=== PATIENT | male | born 1950 | race Two or more races ===

== ENCOUNTER 2023-03-22 11:08 | Inpatient (IN) | payer MEDICARE, OTHER ==
[~2023-03-22] VITALS: Ht 167.6 cm; Wt 63.5 kg
--- NOTE | 2023-03-22 11:19 | NUR ---
BIB , SENT BY HER PMD, C/O WEAKNESS AND HAD A SYNCOPAL EPISODE DENIES ANY HEAD TRAUMA. PT HAS ACCESS FOR DIALYSIS ON HIS R UPPER ARM, LAST DIALYSIS WAS YESTERDAY. ATTACHED TO MONITOR, VITALS ARE WITHIN NORMAL LIMITS. WARM BLANKET PROVIDED FOR COMFORT. AWAITING MD RICHARDSON.
--- NOTE | 2023-03-22 11:31 | NUR ---
IV ESTABLISHED L FA 20G. LABS AND BLOOD CULTURES DRAWN AND OCLLETCED AT BEDSIDE.
--- NOTE | 2023-03-22 11:41 | NUR ---
COVID TEST COLLECTED AND SENT
--- NOTE | 2023-03-22 11:42 | NUR ---
PT IS UNABLE TO PROVIDE URINE, HE IS ANURIC. AWARE.
[2023-03-22] MEDS ORDERED: LEVO50TA8 PO (11:54)
[2023-03-22] MEDS ORDERED: ATOR40TA PO (11:54)
[2023-03-22] MEDS ORDERED: PANT20TA17 PO (11:54)
[2023-03-22] MEDS ORDERED: PRAM0.129 PO (11:54)
[2023-03-22] MEDS ORDERED: ASPI-1420 PO (11:54)
[2023-03-22] MEDS ORDERED: CARV6.252 PO (11:54)
[2023-03-22 12:05] LABS: BASOPHILS # (AUTO) 0.1 K/uL (0.0-0.2); BASOPHILS % (AUTO) 1.6 % (0.0-2.0); EOSINOPHILS % (AUTO) 4.5 % (0.0-6.0); HEMATOCRIT 29 % (39-51); HEMOGLOBIN 9.5 g/dL (13.5-17.5); LYMPHOCYTES # (AUTO) 0.4 K/uL (0.8-4.8); LYMPHOCYTES % (AUTO) 10.1 % (20.0-44.0); MEAN CORPUSCULAR HGB CONC 33 g/dl (31.0-36.0); MEAN CORPUSCULAR VOLUME 93 fL (80-96); MONOCYTES # (AUTO) 0.4 K/uL (0.1-1.30); MONOCYTES % (AUTO) 9.8 % (2.0-12.0); NEUTROPHILS # (AUTO) 3.3 K/uL (1.8-8.9); PLATELET COUNT (AUTO) 233 K/uL (150-450); RED BLOOD CELL COUNT(AUTO) 3.13 MIL/uL (4.5-6.0); WHITE BLOOD COUNT (AUTO) 4.4 K/uL (4.3-11.0)
[2023-03-22 12:21] LABS: CALCIUM, SERUM 9.7 mg/dL (8.5-10.1); CARBON DIOXIDE 30 mmol/L (21-32); CHLORIDE 97 mmol/L (98-107); CREATININE 5.1 mg/dL (0.6-1.3); GLUCOSE 128 mg/dL (74-106); POTASSIUM 4.1 mmol/L (3.5-5.1); SODIUM SERUM 135 mmol/L (136-145); UREA NITROGEN, BLOOD 49 mg/dL (7-18)
[2023-03-22 12:32] LABS: ALANINE AMINOTRANSFERASE 24 U/L (12-78); ALBUMIN 2.1 g/dL (3.4-5.0); ALKALINE PHOSPHATASE 350 U/L (46-116); ASPARTATE AMINOTRANSFERASE 37 U/L (15-37); BILIRUBIN,DIRECT 0.3 mg/dL (0.0-0.2); BILIRUBIN,TOTAL 0.7 mg/dL (0.2-1.0); TOTAL PROTEIN, SERUM 6.6 g/dL (6.4-8.2)
--- NOTE | 2023-03-22 12:35 | NUR ---
BED 113-1
--- NOTE | 2023-03-22 14:08 | NUR ---
REPORT GIVEN TO TIGRE FOR PRIYA
--- NOTE | 2023-03-22 14:09 | NUR ---
RN NOTE RECEIVED REPORT FROM [facility], PATIENT WILL BE ADMITTED TO TELE ROOM 113 BED 1.
--- NOTE | 2023-03-22 14:52 | NUR ---
TRANSPORTED TO FLOOR IN STABLE CONDITION.
[2023-03-22] MEDS ORDERED: ACETAMINOPHEN 325 MG TABLET PO PRN (15:30)
[2023-03-22] MEDS ORDERED: MAG HYDROX/AL HYDROX/SIMETH 30 ML UDC PO PRN (15:30)
[2023-03-22] MEDS ORDERED: ONDANSETRON HCL/PF 4 MG/2 ML VIAL IVP PRN (15:30)
[2023-03-22] MEDS ORDERED: ZOLPIDEM TARTRATE 5 MG TABLET PO PRN (15:30)
[2023-03-22] MEDS ORDERED: MAGNESIUM HYDROXIDE 30 ML UDC PO PRN (15:30)
[2023-03-22] MEDS ORDERED: Z GUARD REMEDY 4 OZ OINT TP PRN (15:30)
[2023-03-22] MEDS: ASPIRIN EC 81 MG TABLET.DR PO SCH (15:55)
--- NOTE | 2023-03-22 18:46 | NUR ---
RN NOTE PATIENT STARTED DIAYLSIS AT THIS TIME.
--- NOTE | 2023-03-22 20:11 | NUR ---
ADMISSION RN NOTE RECEIVED PATIENT ALREADY IN ROOM. TRANSFERRED IN UNIT AT AROUND 1405 ACCORDING TO REPORT. 3 FAMILY MEMBERS AT BEDSIDE. PATIENT IS CURRENTLY GETTING DIALYSIS. ACCESS ON R. FISTULA. NO BP SIGN ON L. ARM IN PLACE. PATIENT IS A/OX4. NO S/S OF APPARENT DISTRESS IN ROOM AIR. DENIES ANY PAIN NOR DISCOMFORT. PATIENT WISHES TO BE FULL CODE. NEW ID BAND ON PATIENT. BELONGINGS CHECKED AND SIGNED FOR. PATIENT WITH FAMILY MEMBERS ORIENTED IN THE UNIT AND THE USE OF CALL LIGHT. SAFETY IN PLACE-- BED IN LOWEST, LOCKED POSITION, CALL LIGHT WITHIN REACH, SIDE RAILS UP X2. JAR, HD RN IN ROOM. WILL CONTINUE WITH PATIENT'S PLAN OF CARE AND FOLLOW THROUGH DOCTOR'S ORDERS.
--- NOTE | 2023-03-23 07:00 | NUR ---
RN OPENING NOTE RECEIVED PATIENT IN BED, AWAKE, A/O X 4. PATIENT ON ROOM AIR WITH NO S/SX OF ACUTE RESPI DISTRESS, PAIN, DISCOMFORT OR DISTRESS NOTED AT THIS TIME. BREATHING IS EVEN AND UNLABORED. IV ACCESS ON LEFT FA #20g, INTACT, PATENT, AND FLUSHING WELL. R AV FISTULA. ALL SAFETY MEASURES IN PLACE, BED ELEVATED, IN LOWEST AND LOCKED POSITION. SIDE RAILS UP X3, CALL LIGHT AND TABLE WITHIN REACH. WILL CONTINUE TO MONITOR.
[2023-03-23 07:27] LABS: BASOPHILS # (AUTO) 0.1 K/uL (0.0-0.2); BASOPHILS % (AUTO) 1.2 % (0.0-2.0); EOSINOPHILS % (AUTO) 4.6 % (0.0-6.0); HEMATOCRIT 29 % (39-51); HEMOGLOBIN 9.6 g/dL (13.5-17.5); LYMPHOCYTES # (AUTO) 0.5 K/uL (0.8-4.8); LYMPHOCYTES % (AUTO) 10.7 % (20.0-44.0); MEAN CORPUSCULAR HGB CONC 33 g/dl (31.0-36.0); MEAN CORPUSCULAR VOLUME 90 fL (80-96); MONOCYTES # (AUTO) 0.6 K/uL (0.1-1.30); MONOCYTES % (AUTO) 12.9 % (2.0-12.0); NEUTROPHILS # (AUTO) 3.3 K/uL (1.8-8.9); NEUTROPHILS % (AUTO) 70.6 % (43.0-81.0); PLATELET COUNT (AUTO) 228 K/uL (150-450); RED BLOOD CELL COUNT(AUTO) 3.24 MIL/uL (4.5-6.0); WHITE BLOOD COUNT (AUTO) 4.7 K/uL (4.3-11.0)
[2023-03-23 07:51] LABS: CALCIUM, SERUM 9.8 mg/dL (8.5-10.1); CARBON DIOXIDE 29 mmol/L (21-32); CHLORIDE 99 mmol/L (98-107); CREATININE 4.2 mg/dL (0.6-1.3); GLUCOSE 102 mg/dL (74-106); MAGNESIUM 2.1 mg/dL (1.8-2.4); PHOSPHORUS 4.8 mg/dL (2.5-4.9); SODIUM SERUM 135 mmol/L (136-145); UREA NITROGEN, BLOOD 35 mg/dL (7-18)
[2023-03-23] MEDS: LEVOTHYROXINE SODIUM 50 MCG TABLET PO SCH (08:13)
[2023-03-23] MEDS: PANTOPRAZOLE 40 MG TABLET.DR PO SCH (08:13)
[2023-03-23] MEDS: ASPIRIN EC 81 MG TABLET.DR PO SCH (08:13)
[2023-03-23] MEDS: ATORVASTATIN 40 MG TABLET PO SCH (08:13)
[2023-03-23] MEDS: ALBUMIN 25% 25 GM in PREMIX 1 EA IV PRN (09:34)
--- NOTE | 2023-03-23 10:28 | NUR ---
RN NOTE DOCTOR SANDIP NOTIFIED ABOUT BNP [id number] OF LAST NIGHT. NO NEW ORDERS RECEIVED.
[2023-03-23 10:59] LABS: CHOLESTEROL 86 mg/dL (<200); HDL CHOLESTEROL 54 mg/dL (40-60); LDL 34 mg/dL (0-99); TRIGLYCERIDES 37 mg/dL (30-150)
[2023-03-23 12:21] VITALS: BP 123/59
[2023-03-23] MEDS ORDERED: HEPARIN SODIUM, PORCINE 5000 UNITS/1 ML VIAL IV ONE (13:00)
[2023-03-23] MEDS: HEPARIN INFUSION/D5W 500 ML IV PRN (14:55)
[2023-03-23 16:00] VITALS: BP 117/59
--- NOTE | 2023-03-23 19:16 | NUR ---
RN CLOSING NOTE RECEIVED PATIENT IN BED, AWAKE, A/O X 4. PATIENT ON ROOM AIR WITH NO S/SX OF ACUTE RESPI DISTRESS, PAIN, DISCOMFORT OR DISTRESS NOTED AT THIS TIME. BREATHING IS EVEN AND UNLABORED. IV ACCESS ON LEFT FA #20g, INTACT, PATENT, AND FLUSHING WELL. PATIENT ON HEPARIN DRIP. APPT TO BE RETAKEN AT 2100 AND TITRATE PER HOSPITAL PROTOCOL. PATIENT R AV FISTULA, HAD HEMODIALYSIS TODAY AND 2,000 ML OF FLUID WAS REMOVED. ALL SAFETY MEASURES IN PLACE, BED ELEVATED, IN LOWEST AND LOCKED POSITION. SIDE RAILS UP X3, CALL LIGHT AND TABLE WITHIN REACH. REPORT GIVEN TO FLEET SERVICE MANAGER FOR CONTINUING OF CARE.
--- NOTE | 2023-03-23 19:20 | NUR ---
RN NOTE RECEIVED PT FOR CONTINUITY OF CARE. PATIENT A/OX4 IN NO S/SX OF ACUTE DISTRESS AT THIS TIME; CURRENTLY ON ROOM AIR; WITH 02 SAT >95% AT THIS TIME.FAMILY AT BEDSIDE. WITH IV ACCESS PATENT, INTACT AND FLUSHING WELL. WITH RUNNING HEPARIN RECEIVED @ DOSE RATE OF 900U/HR. ENSURE SAFETY MEASURES WITHIN THE SHIFT. PATIENT BED ALARM IS ON. HEAD OF BED ELEVATED. BED IS LOCKED, IN LOWEST POSITION AND SIDE RAILS UP. CALL LIGHT WITHIN REACH OF THE PATIENT. WILL CONTINUE TO MONITOR AND REASSESS FOR ANY CHANGES AND WILL CARRY OUT ANY ONGOING AND ACTIVE MD ORDER.
[2023-03-23 20:00] VITALS: BP 102/58
--- NOTE | 2023-03-23 22:34 | NUR ---
RN NOTE CRITICAL LAB RECEIVED FROM LAB; S/W RADHA PTT : 152.9. WILL ADJUST PER HEPARIN PROTOCOL AND NOTIFY
--- NOTE | 2023-03-23 22:35 | NUR ---
RN NOTE PTT : 152.9 PER HEPARIN PROTOCOL >90. HOLD INFUSION FOR 1 HR AND THEN DECREASE RATE BY 200U/HR. CURRENT INFUSION AT 900U/HR. STO BY 2235 RESUME AT 2335 WITH NEW DOSE RATE OF 700U/HR. THEN REPEAT PTT IN 6HOURS. NOTIFIED (JULIOCESAR WALLS). WATER RESOURCES TECHNICAL OFFICER WELL AWARE.
--- NOTE | 2023-03-23 23:35 | NUR ---
RN NOTE RESTARTED HEPARIN DRIP @700U/HR; REPEAT PTT IN 6HOURS. WATER OPERATOR MADE AWARE.
[2023-03-24] VITALS: BP 115/61
[2023-03-24 04:00] VITALS: BP 113/65
--- NOTE | 2023-03-24 04:00 | NUR ---
RN NOTE PATIENT REMAINED TO BE IN NO SIGNS OF ACUTE RESPIRATORY DISTRESS , SAFE ENVIRONMENT MAINTAINED FOR PT. AM PATIENT CARE ASSISTANCE RENDERED. WILL CONTINUE TO MONITOR AND REASSESS FOR ANY CHANGES THROUGHOUT THE SHIFT.
--- NOTE | 2023-03-24 05:40 | NUR ---
RN NOTE AM EKG DONE; AFIB , NOTIFIED STACY OJEDA (TITI,BASTING MACHINE OPERATOR)
--- NOTE | 2023-03-24 06:36 | NUR ---
RN NOTE PATIENT REMAINS IN ROOM IN NO SIGNS OF RESPIRATORY DISTRESS, PATIENT STILL ON ROOM AIR ;TOLERATING WELL SATURATING @ >95% SP02. HAD EPISODE OF CONFUSION DURING THE SHIFT, MD AWARE (TITITRAVERSE ROD ASSEMBLER) SAFETY MEASURES IMPLEMENTED, BED IN LOWEST POSITION, LOCKED, SIDE RAILS UP, CALL LIGHT WITHIN REACH. ALL NEEDS AND ORDERS ADDRESSED DURING THE SHIFT. IV ACCESS MAINTAINED INTACT, SECURED AND FLUSHING WELL. ALL DUE MEDS GIVEN ORDERED & SCHEDULED ; PATIENT TOLERATED WELL. STILL WITH ONGOING HEPARIN DRIP PER PROTOCOL WITH CURRENT DOSE RATE OF 700U/HR. WAITING FOR NEW PTT RESULT; ONCE OUT WILL ADJUST PER PROTOCOL. PATIENT KEPT CLEAN AND COMFORTABLE WITHIN THE SHIFT. PATIENT ENDORSED TO INCOMING SHIFT RN WITH STABLE VITAL SIGN AND FOR CONTINUITY OF CARE.
[2023-03-24 07:27] LABS: BASOPHILS # (AUTO) 0.1 K/uL (0.0-0.2); BASOPHILS % (AUTO) 1.9 % (0.0-2.0); HEMATOCRIT 30 % (39-51); HEMOGLOBIN 9.4 g/dL (13.5-17.5); LYMPHOCYTES # (AUTO) 0.6 K/uL (0.8-4.8); LYMPHOCYTES % (AUTO) 12.3 % (20.0-44.0); MEAN CORPUSCULAR HGB CONC 32 g/dl (31.0-36.0); MEAN CORPUSCULAR VOLUME 94 fL (80-96); MONOCYTES # (AUTO) 0.6 K/uL (0.1-1.30); MONOCYTES % (AUTO) 12.8 % (2.0-12.0); NEUTROPHILS # (AUTO) 3.1 K/uL (1.8-8.9); PLATELET COUNT (AUTO) 243 K/uL (150-450); RED BLOOD CELL COUNT(AUTO) 3.17 MIL/uL (4.5-6.0); WHITE BLOOD COUNT (AUTO) 4.5 K/uL (4.3-11.0)
[2023-03-24 07:37] LABS: ALANINE AMINOTRANSFERASE 21 U/L (12-78); ALBUMIN 2.3 g/dL (3.4-5.0); ALKALINE PHOSPHATASE 316 U/L (46-116); ASPARTATE AMINOTRANSFERASE 30 U/L (15-37); BILIRUBIN,TOTAL 0.6 mg/dL (0.2-1.0); CALCIUM, SERUM 9.8 mg/dL (8.5-10.1); CARBON DIOXIDE 27 mmol/L (21-32); CHLORIDE 102 mmol/L (98-107); GLUCOSE 81 mg/dL (74-106); MAGNESIUM 2.3 mg/dL (1.8-2.4); PHOSPHORUS 5.4 mg/dL (2.5-4.9); POTASSIUM 4.3 mmol/L (3.5-5.1); SODIUM SERUM 137 mmol/L (136-145); TOTAL PROTEIN, SERUM 6.4 g/dL (6.4-8.2); UREA NITROGEN, BLOOD 30 mg/dL (7-18)
[2023-03-24 08:00] VITALS: BP 121/69
[2023-03-24] MEDS: LEVOTHYROXINE SODIUM 50 MCG TABLET PO SCH (08:14)
[2023-03-24] MEDS: ASPIRIN EC 81 MG TABLET.DR PO SCH (08:14)
[2023-03-24] MEDS: PANTOPRAZOLE 40 MG TABLET.DR PO SCH (08:14)
[2023-03-24] MEDS: ATORVASTATIN 40 MG TABLET PO SCH (08:14)
--- NOTE | 2023-03-24 09:45 | NUR ---
I HOLD THE HEPARIN DRIP FOR ONE HOUR AT 0945 AND AT 1045 AND DECREASE THE RATE 200, SO NOW IS 700 WHICH I HOLD IT. WHEN I RESUME AT 1045 THE RATE WILL BE 500
--- NOTE | 2023-03-24 10:45 | NUR ---
I RESUMED THE HEPARIN DRIP AT 1045 PER PROTOCOL I DECREASED THE RATE FROM 700 TO 500 (10ML/HR). PHARMACY ALREADY NOTIFIED BY PHONE
[2023-03-24 12:00] VITALS: BP 117/69
[2023-03-24] MEDS: LEVOFLOXACIN 500 MG /D5W 100ML 100 ML IV SCH (14:52)
--- NOTE | 2023-03-24 15:00 | NUR ---
NEW IV SITE INITIATED ON PATIENT'S LEFT UPPER ARM G 20 FOR LEVOFLOXACIN. PATIENT IS ON HEPARIN DRIM AND HAD ONLY ONE IV ACCESS, SINCE HEPARIN AND LEVOFLOXACIN ARE NOT COMPATIBLE I HAD TO HAVE A NEW IV SITE.
[2023-03-24 16:00] VITALS: BP 94/41
--- NOTE | 2023-03-24 18:55 | NUR ---
PTT RESULT CAME IN 63.7 PER PROTOCOL NO CHANGES IN HEPARIN DRIP RATE.
--- NOTE | 2023-03-24 19:40 | NUR ---
ADMINISTRATIVE SUPERVISOR OPENING NOTE RECEIVED PATIENT IN BED; AWAKE, ALERT AND ORIENTED X 4. HUNGARIAN SPEAKER. ON O2 INHALATION @ 2 LPM VIA NASAL CANNULA; TOLERATING WELL. NOT IN ANY FORM OF RESPIRATORY OR CARDIAC DISTRESS NOTED AT THIS TIME. ON TELEMETRY MONITORING WHICH READS CONTROLLED A FIB HR-74 BPM. WITH IV ACCESS ON LEFT FOREARM 20g; PATENT AND INTACT WITH ONGOING HEPARIN DRIP RUNNING @ 500 UNITS/HR OR 10 ML/HR ORDERED PER HEPARIN DRIP PROTOCOL. WITH ANOTHER IV LINE ON LEFT UPPER ARM 20g; PATENT, INTACT AND SALINE LOCKED. WITH RIGHT AV FISTULA. ABLE TO MAKE NEEDS KNOWN. SAFETY PRECAUTIONS IMPLEMENTED: CALL LIGHT AND TABLE WITHIN REACH, SIDE RAILS UP X 3, BED IN LOWEST LOCKED POSITION. WILL CONTINUE TO MONITOR PATIENT ACCORDINGLY.
[2023-03-24 20:00] VITALS: BP 107/65
[2023-03-24] MEDS: HEPARIN INFUSION/D5W 500 ML IV PRN (23:25)
[2023-03-25] VITALS: BP 114/52
[2023-03-25 04:00] VITALS: BP 110/60
[2023-03-25 06:52] LABS: BASOPHILS # (AUTO) 0.2 K/uL (0.0-0.2); BASOPHILS % (AUTO) 2.9 % (0.0-2.0); EOSINOPHILS % (AUTO) 5.2 % (0.0-6.0); HEMATOCRIT 30 % (39-51); HEMOGLOBIN 9.3 g/dL (13.5-17.5); LYMPHOCYTES # (AUTO) 0.5 K/uL (0.8-4.8); LYMPHOCYTES % (AUTO) 10.2 % (20.0-44.0); MEAN CORPUSCULAR HGB CONC 31 g/dl (31.0-36.0); MEAN CORPUSCULAR VOLUME 94 fL (80-96); MONOCYTES # (AUTO) 0.6 K/uL (0.1-1.30); NEUTROPHILS # (AUTO) 3.8 K/uL (1.8-8.9); NEUTROPHILS % (AUTO) 69.7 % (43.0-81.0); PLATELET COUNT (AUTO) 248 K/uL (150-450); RED BLOOD CELL COUNT(AUTO) 3.18 MIL/uL (4.5-6.0); WHITE BLOOD COUNT (AUTO) 5.4 K/uL (4.3-11.0)
[2023-03-25 07:04] LABS: CARBON DIOXIDE 25 mmol/L (21-32); CHLORIDE 100 mmol/L (98-107); CREATININE 5.1 mg/dL (0.6-1.3); GLUCOSE 85 mg/dL (74-106); POTASSIUM 4.7 mmol/L (3.5-5.1); SODIUM SERUM 136 mmol/L (136-145); UREA NITROGEN, BLOOD 42 mg/dL (7-18)
--- NOTE | 2023-03-25 07:05 | NUR ---
RN NOTE PTT RESULT CAME IN: 54.2. PER HEPARIN DRIP PROTOCOL; NO CHANGES IN HEPARIN DRIP RATE.
--- NOTE | 2023-03-25 07:08 | NUR ---
ULTRASOUND SPEC CLOSING NOTE PATIENT IN BED; AWAKE, A/O X 4. SRI LANKAN SPEAKING. ON O2 INHALATION @ 2 LPM VIA NASAL CANNULA; WELL TOLERATED. IN NO ACUTE DISTRESS. ON TELEMETRY MONITORING WHICH READS A FIB CONTROLLED HR-78 BPM. WITH IV ACCESS ON LEFT FOREARM 20g; PATENT AND INTACT WITH ONGOING HEPARIN DRIP RUNNING @ 500 UNITS/HR OR 10 ML/HR ORDERED PER HEPARIN DRIP PROTOCOL. WITH ANOTHER IV LINE ON LEFT UPPER ARM 20g; PATENT, INTACT AND SALINE LOCKED. WITH RIGHT AV FISTULA. ALL NEEDS ATTENDED. ALL DUE MEDS GIVEN ORDERED. SAFETY PRECAUTIONS MAINTAINED: CALL LIGHT AND TABLE WITHIN REACH, SIDE RAILS UP X 3, BED IN LOWEST LOCKED POSITION. ENDORSED TO MORNING SHIFT FOR CONTINUITY OF CARE.
[2023-03-25 08:00] VITALS: BP 123/68
[2023-03-25] MEDS: LEVOTHYROXINE SODIUM 50 MCG TABLET PO SCH (08:13)
[2023-03-25] MEDS: ASPIRIN EC 81 MG TABLET.DR PO SCH (08:13)
[2023-03-25] MEDS: PANTOPRAZOLE 40 MG TABLET.DR PO SCH (08:13)
[2023-03-25] MEDS: ATORVASTATIN 40 MG TABLET PO SCH (08:13)
[2023-03-25] MEDS: ALBUMIN 25% 25 GM in PREMIX 1 EA IV PRN (10:36)
[2023-03-25 12:00] VITALS: BP 113/54
[2023-03-25] MEDS: LEVOFLOXACIN 500 MG /D5W 100ML 100 ML IV SCH (13:24)
--- NOTE | 2023-03-25 13:30 | NUR ---
HD DONE OUTPUT IS 1000 ML, BP WITHIN NORMAL LEVEL
[2023-03-25 16:00] VITALS: BP 93/52
--- NOTE | 2023-03-25 19:00 | NUR ---
GROUP FITNESS MANAGER OPENING NOTE PATIENT IS RESTING IN BED WITH HIS FAMILY MEMBERS AT HIS BEDSIDE. PT IS [place] SPEAKING. HE IS AWAKE, ALERT AND ORIENTED X 4. PT IS ON 2 LPM OF OXYGEN VIA NASAL CANNULA; TOLERATING WELL. NO S/S OF DISTRESS OR SOB. PT DENIES OF HAVING PAIN AT THIS MOMENT. PT IS ON EXTERNAL PEOPLE MANAGER, CURRENT ON THE MONITOR, HIS HEART RHYTHM IS CONTROLLED A FIB WITH SOME PVCS AND BBB; AND THIS HR IS AT 80S/MIN. PT HAS ONE IV ACCESS ON HIS LEFT FOREARM 20g; WITH ONGOING HEPARIN DRIP RUNNING @ 500 UNITS/HR OR 10 ML/HR ORDERED PER HEPARIN DRIP PROTOCOL. ANOTHER IV LINE IS ON HIS LEFT UPPER ARM 20g; PATENT, INTACT AND SALINE LOCKED. PT HAS AV FISTULA AT HIS R UA. DRESSING IS DRY, PATENT AND INTACT. PT IS ABLE TO MAKE HIS NEEDS KNOWN. SAFETY PRECAUTIONS IMPLEMENTED: CALL LIGHT AND TABLE WITHIN REACH, SIDE RAILS UP X 3, BED IN LOWEST LOCKED POSITION. WILL CONTINUE TO MONITOR PATIENT ACCORDINGLY.
[2023-03-25 20:00] VITALS: BP 111/78
[2023-03-26] VITALS: BP 133/69
[2023-03-26 04:00] VITALS: BP 113/45
[2023-03-26 05:59] LABS: BASOPHILS # (AUTO) 0.1 K/uL (0.0-0.2); BASOPHILS % (AUTO) 1.9 % (0.0-2.0); EOSINOPHILS % (AUTO) 5.3 % (0.0-6.0); HEMATOCRIT 29 % (39-51); HEMOGLOBIN 9.1 g/dL (13.5-17.5); LYMPHOCYTES # (AUTO) 0.6 K/uL (0.8-4.8); LYMPHOCYTES % (AUTO) 11.3 % (20.0-44.0); MEAN CORPUSCULAR HGB CONC 32 g/dl (31.0-36.0); MEAN CORPUSCULAR VOLUME 94 fL (80-96); MONOCYTES # (AUTO) 0.6 K/uL (0.1-1.30); MONOCYTES % (AUTO) 12.3 % (2.0-12.0); NEUTROPHILS # (AUTO) 3.4 K/uL (1.8-8.9); NEUTROPHILS % (AUTO) 69.2 % (43.0-81.0); PLATELET COUNT (AUTO) 216 K/uL (150-450); WHITE BLOOD COUNT (AUTO) 4.9 K/uL (4.3-11.0)
[2023-03-26 06:19] LABS: CALCIUM, SERUM 9.8 mg/dL (8.5-10.1); CARBON DIOXIDE 26 mmol/L (21-32); CHLORIDE 101 mmol/L (98-107); GLUCOSE 86 mg/dL (74-106); PHOSPHORUS 4.9 mg/dL (2.5-4.9); POTASSIUM 4.2 mmol/L (3.5-5.1); SODIUM SERUM 137 mmol/L (136-145); UREA NITROGEN, BLOOD 29 mg/dL (7-18)
--- NOTE | 2023-03-26 06:23 | NUR ---
DATA INTEGRATION ARCHITECT CLOSING NOTE PATIENT IS RESTING IN CHAIR WATCHING TV. PT IS MONGOLIAN SPEAKING. HE IS AWAKE, ALERT AND ORIENTED X 4. PT IS ON 2 LPM OF OXYGEN VIA NASAL CANNULA; TOLERATING WELL. NO S/S OF DISTRESS OR SOB. PT DENIES OF HAVING PAIN AT THIS MOMENT. PT IS ON EXTERNAL METAL SHAPING MACHINE OPERATOR, CURRENT ON THE MONITOR, HIS HEART RHYTHM IS CONTROLLED A FIB WITH SOME PVCS AND BBB; AND THIS HR IS AT 80S/MIN. PT HAS ONE IV ACCESS ON HIS LEFT FOREARM 20g; WITH ONGOING HEPARIN DRIP RUNNING @ 500 UNITS/HR OR 10 ML/HR ORDERED PER HEPARIN DRIP PROTOCOL. ANOTHER IV LINE IS ON HIS LEFT UPPER ARM 20g; PATENT, INTACT AND SALINE LOCKED. PT HAS AV FISTULA AT HIS R UA. DRESSING IS DRY, PATENT AND INTACT. PT IS ABLE TO MAKE HIS NEEDS KNOWN. SAFETY PRECAUTIONS IMPLEMENTED: CALL LIGHT AND TABLE WITHIN REACH, SIDE RAILS UP X 3, BED IN LOWEST LOCKED POSITION. WILL ENDORSE NEXT SHIFT NURSE FOR CONTINUING PT CARE.
[2023-03-26] MEDS: PANTOPRAZOLE 40 MG TABLET.DR PO SCH (07:31)
[2023-03-26] MEDS: LEVOTHYROXINE SODIUM 50 MCG TABLET PO SCH (07:31)
--- NOTE | 2023-03-26 07:33 | NUR ---
PUMP MACHINE OPERATOR OPEN NOTE PATIENT IS INBD . PT IS CANADIAN SPEAKING. HE IS AWAKE, ALERT AND ORIENTED X 4. PT IS ON 2 LPM OF OXYGEN VIA NASAL CANNULA; TOLERATING WELL. NO S/S OF DISTRESS OR SOB. PT DENIES OF HAVING PAIN AT THIS MOMENT. PT IS ON EXTERNAL YARN MERCERIZER OPERATOR, CURRENT ON THE MONITOR, HIS HEART RHYTHM IS CONTROLLED A FIB WITH SOME PVCS AND BBB; PT HAS ONE IV ACCESS ON HIS LEFT FOREARM 20g; WITH ONGOING HEPARIN DRIP RUNNING @ 500 UNITS/HR OR 10 ML/HR ORDERED PER HEPARIN DRIP PROTOCOL. ANOTHER IV LINE IS ON HIS LEFT UPPER ARM 20g; PATENT, INTACT AND SALINE LOCKED. PT HAS AV FISTULA AT HIS R UA. DRESSING IS DRY, PATENT AND INTACT. PT IS ABLE TO MAKE HIS NEEDS KNOWN. SAFETY PRECAUTIONS IMPLEMENTED: CALL LIGHT AND TABLE WITHIN REACH, SIDE RAILS UP X 3, BED IN LOWEST LOCKED POSITION. WILL CONTINUE TO MONITOR
[2023-03-26 08:00] VITALS: BP 150/55
[2023-03-26] MEDS: ATORVASTATIN 40 MG TABLET PO SCH (08:03)
[2023-03-26] MEDS: ASPIRIN EC 81 MG TABLET.DR PO SCH (08:04)
[2023-03-26] MEDS ORDERED: METOPROLOL TARTRATE 50 MG TABLET PO ONE (09:30)
[2023-03-26 12:00] VITALS: BP 124/43
[2023-03-26] MEDS: LEVOFLOXACIN (250MG) 250 MG TABLET PO SCH (13:20)
[2023-03-26 16:00] VITALS: BP 95/43
--- NOTE | 2023-03-26 18:29 | NUR ---
TOUR LEADER CLOSING NOTE PATIENT IS IN BED PT [place] ISLANDER SPEAKING. HE IS AWAKE, ALERT AND ORIENTED X 4. PT IS ON 2 LPM OF OXYGEN VIA NASAL CANNULA; TOLERATING WELL. NO S/S OF DISTRESS OR SOB. PT DENIES OF HAVING PAIN AT THIS MOMENT. PT IS ON EXTERNAL MAPPING ENGINEER, CURRENT ON THE MONITOR, HIS HEART RHYTHM IS CONTROLLED A FIB WITH SOME PVCS AND BBB; AND THIS HR IS AT 80S/MIN. PT HAS ONE IV ACCESS ON HIS LEFT FOREARM 20g; WITH ONGOING HEPARIN DRIP RUNNING @ 500 UNITS/HR OR 10 ML/HR ORDERED PER HEPARIN DRIP PROTOCOL. ANOTHER IV LINE IS ON HIS LEFT UPPER ARM 20g; PATENT, INTACT AND SALINE LOCKED. PT HAS AV FISTULA AT HIS R UA. DRESSING IS DRY, PATENT AND INTACT. PT IS ABLE TO MAKE HIS NEEDS KNOWN. SAFETY PRECAUTIONS IMPLEMENTED: CALL LIGHT AND TABLE WITHIN REACH, SIDE RAILS UP X 3, BED IN LOWEST LOCKED POSITION. WILL ENDORSE NEXT SHIFT NURSE FOR CONTINUING PT CARE.
--- NOTE | 2023-03-26 19:30 | NUR ---
BEHAVIORAL SPECIALIST OPENING NOTE RECEIVED PATIENT IN BED; AWAKE, ALERT AND ORIENTED X 4. KOREAN SPEAKING. ON O2 INHALATION @ 2 LPM VIA NASAL CANNULA; TOLERATING WELL. NOT IN ANY FORM OF RESPIRATORY OR CARDIAC DISTRESS NOTED AT THIS TIME. ON TELEMETRY MONITORING WHICH READS CONTROLLED A FIB HR-84 BPM. WITH IV ACCESS ON LEFT FOREARM 20g; PATENT AND INTACT WITH ONGOING HEPARIN DRIP RUNNING @ 500 UNITS/HR, ANOTHER IV LINE ON LEFT UPPER ARM 20g; PATENT, INTACT AND SALINE LOCKED. WITH RIGHT AV FISTULA. ABLE TO MAKE NEEDS KNOWN. SAFETY PRECAUTIONS IMPLEMENTED: CALL LIGHT AND TABLE WITHIN REACH, SIDE RAILS UP X 3, BED IN LOWEST LOCKED POSITION. WILL CONTINUE TO MONITOR PATIENT ACCORDINGLY.
[2023-03-26 20:00] VITALS: BP 102/43
[2023-03-26] MEDS: HEPARIN INFUSION/D5W 500 ML IV PRN (23:32)
[2023-03-27] VITALS: BP 108/54
[2023-03-27 04:00] VITALS: BP 113/54
--- NOTE | 2023-03-27 06:00 | NUR ---
RN NOTE CALLED LAB TO F/UP PTT SCHEDULED AT 0600 FOR HEPARIN DRIP PROTOCOL
--- NOTE | 2023-03-27 06:44 | NUR ---
ANESTHESIOLOGY FELLOW CLOSING NOTE PATIENT REMAINS IN BED; ASLEEP, ALERT AND ORIENTED X 4. URDU SPEAKING. ON O2 INHALATION @ 2 LPM VIA NASAL CANNULA; TOLERATING WELL. NOT IN ANY FORM OF RESPIRATORY OR CARDIAC DISTRESS NOTED AT THIS TIME. ON TELEMETRY MONITORING WHICH READS CONTROLLED A FIB HR-84 BPM. WITH IV ACCESS ON LEFT FOREARM 20g; PATENT AND INTACT WITH ONGOING HEPARIN DRIP RUNNING @ 500 UNITS/HR, ANOTHER IV LINE ON LEFT UPPER ARM 20g; PATENT, INTACT AND SALINE LOCKED. WITH RIGHT AV FISTULA. ABLE TO MAKE NEEDS KNOWN. SAFETY PRECAUTIONS IMPLEMENTED: CALL LIGHT AND TABLE WITHIN REACH, SIDE RAILS UP X 3, BED IN LOWEST LOCKED POSITION. ALL DUE MEDS GIVEN, KEPT DRY AND CLEAN, WILL ENDORSE TO AM SHIFT NURSE FOR CONTINUITY OF CARE.
--- NOTE | 2023-03-27 07:22 | NUR ---
UI DESIGNER OPENING NOTE PATIENT RECEIVED IN BED; ASLEEP, BUT EASILY AROUSABLE. ALERT AND ORIENTED X 4. MONGOLIAN SPEAKING. ON O2 INHALATION @ 2 LPM VIA NASAL CANNULA WITH BREATHING EVEN AND UNLABORED AND NO S/S OF SOB OR RESPIRATORY DISTRESS. IV ACCESS ON LEFT FOREARM 20g PATENT AND INTACT WITH ONGOING HEPARIN DRIP RUNNING @ 500 UNITS/HR, ANOTHER IV LINE ON LEFT UPPER ARM 20g PATENT, INTACT AND SALINE LOCKED. WITH RIGHT AV FISTULA. SAFETY PRECAUTIONS IMPLEMENTED: CALL LIGHT AND TABLE WITHIN REACH, SIDE RAILS UP X 3, BED IN LOWEST LOCKED POSITION. WILL CONTINUE TO MONITOR.
[2023-03-27 07:41] LABS: BASOPHILS # (AUTO) 0.1 K/uL (0.0-0.2); BASOPHILS % (AUTO) 1.5 % (0.0-2.0); EOSINOPHILS % (AUTO) 4.8 % (0.0-6.0); HEMATOCRIT 30 % (39-51); HEMOGLOBIN 9.6 g/dL (13.5-17.5); LYMPHOCYTES # (AUTO) 0.5 K/uL (0.8-4.8); LYMPHOCYTES % (AUTO) 10.1 % (20.0-44.0); MEAN CORPUSCULAR HGB CONC 32 g/dl (31.0-36.0); MEAN CORPUSCULAR VOLUME 93 fL (80-96); MONOCYTES # (AUTO) 0.6 K/uL (0.1-1.30); MONOCYTES % (AUTO) 12.3 % (2.0-12.0); NEUTROPHILS # (AUTO) 3.6 K/uL (1.8-8.9); NEUTROPHILS % (AUTO) 71.3 % (43.0-81.0); PLATELET COUNT (AUTO) 206 K/uL (150-450); RED BLOOD CELL COUNT(AUTO) 3.21 MIL/uL (4.5-6.0)
[2023-03-27 08:00] VITALS: BP 110/61
[2023-03-27] MEDS: ATORVASTATIN 40 MG TABLET PO SCH (08:03)
[2023-03-27] MEDS: LEVOTHYROXINE SODIUM 50 MCG TABLET PO SCH (08:03)
[2023-03-27] MEDS: ASPIRIN EC 81 MG TABLET.DR PO SCH (08:04)
[2023-03-27] MEDS: PANTOPRAZOLE 40 MG TABLET.DR PO SCH (08:04)
[2023-03-27] MEDS ORDERED: METOPROLOL SUCCINATE 25 MG TAB.SR.24H PO ONE (10:00)
[2023-03-27] MEDS ORDERED: IV NS 0.9% 250 ML IV ONE (10:37)
[2023-03-27] MEDS ORDERED: IOHEXOL-350 100 ML VIAL IV ONE (10:37)
[2023-03-27] MEDS ORDERED: METOPROLOL TARTRATE INJ 5 MG/5 ML AMPUL ONE ×2 (10:37→11:24)
[2023-03-27] MEDS ORDERED: NITROGLYCERIN 0.4 MG/TAB BOTTLE ONE (10:37)
[2023-03-27] MEDS ORDERED: CT SWABBABLE VALVE TRANS SET 1 EA INFUS.SET MC ONE (10:37)
[2023-03-27 12:00] VITALS: BP 115/46
[2023-03-27] MEDS: LEVOFLOXACIN (250MG) 250 MG TABLET PO SCH ×2 (13:43→16:21)
--- NOTE | 2023-03-27 13:46 | NUR ---
PATIENT RECEIVING DIALYSIS. WILL PUT MEDICATION ON HOLD UNTIL COMPLETE.
[2023-03-27 16:00] VITALS: BP 116/40
[2023-03-27] MEDS: GABAPENTIN 100 MG CAPSULE PO SCH (16:21)
--- NOTE | 2023-03-27 19:09 | NUR ---
CHILD PROTECTIVE SERVICES SOCIAL WORKER CLOSING NOTE PATIENT IN BED SLEEPING WITH FAMILY AT BEDSIDE. EASILY AROUSABLE. ALERT AND ORIENTED X4 CITIZEN OF [place] SPEAKING. ON 2 LPM OF O2 VIA NASAL CANNULA WITH BREATHING EVEN AND UNLABORED AND NO S/S OF SOB OR RESPIRATORY DISTRESS. IV ACCESS ON LEFT FOREARM 20g PATENT AND INTACT WITH ONGOING HEPARIN DRIP RUNNING @ 500 UNITS/HR. WITH RIGHT AV FISTULA. TWO HOURS OF HEMODIALYSIS COMPLETED THIS AFTERNOON AND PATIENT GIVEN ALL DUE MEDS. SAFETY PRECAUTIONS IMPLEMENTED: CALL LIGHT AND TABLE WITHIN REACH, SIDE RAILS UP X 3, BED IN LOWEST LOCKED POSITION. WILL CONTINUE ENDORSE TO ONCOMING SHIFT FOR PRIYA.
[2023-03-27 20:00] VITALS: BP 110/48
[2023-03-28] VITALS: BP 101/49
[2023-03-28 04:00] VITALS: BP 107/56
--- NOTE | 2023-03-28 06:23 | NUR ---
END OF SHIFT, PATIENT IN BED AWAKE A/O X4, ABLE TO VERBALIZE NEEDS AND CONCERNS, AT 2LPM VIA NC WITH OPTIMAL O2 SAT LEVEL, AFIB IN TELE MONITOR, HEPARIN DRIP STOPPED AT 0500 ORDER FOR THORACENTESIS LATER, NO ACTIVE BLEEDING NOTED, AV FISTULA IN DEBO INTACT, NO BLEEDING NOTED, WILL DO PTT /PT AFTER THE PROCEDURE, OTHERWISE NO SIGNIFICANT CHANGE IN CONDITION DURING THE NIGHT, VITAL SINGS STABLE, SCHEDULED FOR HD AT THIS TIME, AWAITING FOR HD NURSE, WILL ENDORSE CONTINUITY OF CARE TO ONCOMING NURSE.
[2023-03-28 06:59] LABS: BASOPHILS # (AUTO) 0.1 K/uL (0.0-0.2); BASOPHILS % (AUTO) 1.2 % (0.0-2.0); EOSINOPHILS % (AUTO) 5.3 % (0.0-6.0); HEMATOCRIT 30 % (39-51); HEMOGLOBIN 9.6 g/dL (13.5-17.5); LYMPHOCYTES # (AUTO) 0.5 K/uL (0.8-4.8); LYMPHOCYTES % (AUTO) 9.8 % (20.0-44.0); MEAN CORPUSCULAR HGB CONC 32 g/dl (31.0-36.0); MEAN CORPUSCULAR VOLUME 93 fL (80-96); MONOCYTES # (AUTO) 0.6 K/uL (0.1-1.30); MONOCYTES % (AUTO) 12.3 % (2.0-12.0); NEUTROPHILS # (AUTO) 3.7 K/uL (1.8-8.9); NEUTROPHILS % (AUTO) 71.4 % (43.0-81.0); PLATELET COUNT (AUTO) 210 K/uL (150-450); RED BLOOD CELL COUNT(AUTO) 3.23 MIL/uL (4.5-6.0); WHITE BLOOD COUNT (AUTO) 5.1 K/uL (4.3-11.0)
[2023-03-28 08:00] VITALS: BP 124/53
--- NOTE | 2023-03-28 08:02 | NUR ---
RN NOTE CALLED RADIOLOGY,PER FERNANDO, RADIOLOGIST IS NOT IN YET, WILL CALL BACK ONCE THEY ARE IN. NOTIFIED THAT HEPARIN DRIP HAS BEEN HELD SINCE 0500 AND WILL RESUME POST THORACENTESIS.
[2023-03-28] MEDS: ASPIRIN EC 81 MG TABLET.DR PO SCH (09:00)
[2023-03-28] MEDS: PANTOPRAZOLE 40 MG TABLET.DR PO SCH (09:26)
[2023-03-28] MEDS: LEVOTHYROXINE SODIUM 50 MCG TABLET PO SCH (09:26)
[2023-03-28] MEDS: GABAPENTIN 100 MG CAPSULE PO SCH ×2 (09:41→16:51)
[2023-03-28] MEDS: ATORVASTATIN 40 MG TABLET PO SCH (09:41)
--- NOTE | 2023-03-28 11:45 | NUR ---
RN NOTE THORACENTESIS OF THE RIGHT LUNG COMPLETED, REMOVED 1960MLS. SPECIMEN SENT TO LAB.
[2023-03-28 12:00] VITALS: BP 92/43
--- NOTE | 2023-03-28 13:13 | NUR ---
RN NOTE PER JOSEPH FROM PHARMACY, CONTINUE HEPARIN DRIP AT 500 UNITS/HR AT THIS TIME.
--- NOTE | 2023-03-28 13:15 | NUR ---
RN NOTE HEMODIALYSIS WILL BEGIN AT THIS TIME.
[2023-03-28] MEDS: ALBUMIN 25% 25 GM in PREMIX 1 EA IV PRN (13:58)
[2023-03-28] MEDS: LEVOFLOXACIN (250MG) 250 MG TABLET PO SCH (14:01)
[2023-03-28] MEDS: APIXABAN 2.5 MG TABLET PO SCH ×2 (15:02→21:13)
[2023-03-28 16:00] VITALS: BP 96/51
--- NOTE | 2023-03-28 16:30 | NUR ---
RN NOTE HEMODIALYSIS COMPLETED, 1L REMOVED.
--- NOTE | 2023-03-28 19:06 | NUR ---
RN CLOSING NOTE, PATIENT IN BED AWAKE A/O X4, ABLE TO VERBALIZE NEEDS AND CONCERNS, AT 2LPM VIA NC WITH OPTIMAL O2 SAT LEVEL, AFIB IN TELE MONITOR. NO ACTIVE BLEEDING NOTED, AV FISTULA IN DEBO INTACT, NO BLEEDING NOTED. WILL ENDORSE CONTINUITY OF CARE TO ONCOMING NURSE.
--- NOTE | 2023-03-28 19:15 | NUR ---
RN NOTE Report received from Elisabeth VASQUES, patient in bed, in no acute distress, AO x 4, saturation at 97% on 2L via NC, Afib on the monitor, HR is 85. LFA 20g patent and flushing well, saline locked. Patient is ambulatory with assist. Safety measures in place, bed is locked and at lowest position, bed alarm on, HOB elevated, call light within reach of patient. Will continue to monitor and reassess.
[2023-03-28 20:00] VITALS: BP 99/72
[2023-03-29] VITALS: BP 97/51
[2023-03-29 04:00] VITALS: BP 102/52
[2023-03-29 06:44] LABS: BASOPHILS # (AUTO) 0.1 K/uL (0.0-0.2); BASOPHILS % (AUTO) 1.1 % (0.0-2.0); EOSINOPHILS % (AUTO) 4.9 % (0.0-6.0); HEMATOCRIT 28 % (39-51); HEMOGLOBIN 9.1 g/dL (13.5-17.5); LYMPHOCYTES # (AUTO) 0.4 K/uL (0.8-4.8); MEAN CORPUSCULAR HGB CONC 33 g/dl (31.0-36.0); MEAN CORPUSCULAR VOLUME 93 fL (80-96); MONOCYTES # (AUTO) 0.4 K/uL (0.1-1.30); NEUTROPHILS # (AUTO) 3.7 K/uL (1.8-8.9); PLATELET COUNT (AUTO) 188 K/uL (150-450); RED BLOOD CELL COUNT(AUTO) 3.02 MIL/uL (4.5-6.0); WHITE BLOOD COUNT (AUTO) 4.9 K/uL (4.3-11.0)
[2023-03-29 07:04] LABS: ALANINE AMINOTRANSFERASE 22 U/L (12-78); ALBUMIN 2.4 g/dL (3.4-5.0); ALKALINE PHOSPHATASE 304 U/L (46-116); ASPARTATE AMINOTRANSFERASE 37 U/L (15-37); BILIRUBIN,TOTAL 0.6 mg/dL (0.2-1.0); CALCIUM, SERUM 10.1 mg/dL (8.5-10.1); CARBON DIOXIDE 28 mmol/L (21-32); CHLORIDE 100 mmol/L (98-107); CREATININE 3.9 mg/dL (0.6-1.3); GLUCOSE 86 mg/dL (74-106); MAGNESIUM 1.9 mg/dL (1.8-2.4); PHOSPHORUS 4.9 mg/dL (2.5-4.9); POTASSIUM 4.2 mmol/L (3.5-5.1); SODIUM SERUM 135 mmol/L (136-145); UREA NITROGEN, BLOOD 21 mg/dL (7-18)
[2023-03-29 08:00] VITALS: BP 107/64
[2023-03-29] MEDS: LEVOTHYROXINE SODIUM 50 MCG TABLET PO SCH (08:10)
[2023-03-29] MEDS: GABAPENTIN 100 MG CAPSULE PO SCH (08:10)
[2023-03-29] MEDS: ASPIRIN EC 81 MG TABLET.DR PO SCH (08:10)
[2023-03-29] MEDS: PANTOPRAZOLE 40 MG TABLET.DR PO SCH (08:10)
[2023-03-29] MEDS: ATORVASTATIN 40 MG TABLET PO SCH (08:10)
[2023-03-29] MEDS: APIXABAN 2.5 MG TABLET PO SCH (08:11)
[2023-03-29] MEDS: LEVOFLOXACIN (250MG) 250 MG TABLET PO SCH (13:21)
--- NOTE | 2023-03-29 15:30 | NUR ---
RN NOTES: AMBULANCE CAME TO EVALUATION SPECIALIST PT PER HIS REQUEST, PT ALERT AND ORIENTED sob,DENIED PAIN OR DISCOMFORT, ALL DISCHARGE INSTRUCTION GIVEN PRESCRIPTION GIVEN TO PT FOR LEVAQUIN AND ELIQUIS VERBALIZED UNDERSTANDING. SKIN INTACT IV LINE REMOVED SKIN INTACT LEFT VIA GURNEY BY SRI LANKAN [facility] IN STABLE CONDITION
== END 2023-03-29 15:28 | disposition home health service (06) | DRG 280 ==
LOC: ER 11:10 → TELE1 12:41 → MEDSG1 03-29 08:46
PROVIDERS: ADMIT Internal Medicine; ATTEND Internal Medicine
PROC: 5A1D70Z Performance of Urinary Filtration, Intermittent, Less than 6 Hours Per Day (ICD-10-PCS; principal; 2023-03-22)
PROC: 0W993ZX Drainage of Right Pleural Cavity, Percutaneous Approach, Diagnostic (ICD-10-PCS; 2023-03-28)
DX: I48.91 Unspecified atrial fibrillation (principal); I50.33 Acute on chronic diastolic (congestive) heart failure; I21.A1 Myocardial infarction type 2; N18.6 End stage renal disease; I13.2 Hypertensive heart and chronic kidney disease with heart failure and with stage 5 chronic kidney disease, or end stage renal disease; J91.8 Pleural effusion in other conditions classified elsewhere; Z99.2 Dependence on renal dialysis; E78.5 Hyperlipidemia, unspecified; I27.21 Secondary pulmonary arterial hypertension; Z20.822 Contact with and (suspected) exposure to COVID-19; Z79.890 Hormone replacement therapy; Z79.82 Long term (current) use of aspirin; Z79.899 Other long term (current) drug therapy; R55 Syncope and collapse; I69.398 Other sequelae of cerebral infarction; G93.89 Other specified disorders of brain
CPT/HCPCS: 36415; 70450-TC; 71045-TC; 75574; 80048-TC; 80053-TC; 80061-TC; 80076-TC; 82962-TC; 83605-TC; 83735-TC; 83880; 84100-TC; 84484-TC; 85025-TC; 85730-TC; 86706; 87040-TC; 87081-TC; 87102-TC; 87340; 89051-TC; 90935-TC; 93307-TC; A4216; A4223; A6403; C9803; G0378; J1644; J1956; J2405; J3490; J7030; J7050; P9047; Q9967